=== PATIENT | female | born 1930 | race Caucasian/White ===

== ENCOUNTER → 2017-04-11 | Outpatient (CLI) | payer OTHER ==
[2012-09-17 12:26] VITALS: BP 190/80
--- NOTE | 2017-04-16 10:42 | CT ---
HISTORY: Hypertension, dementia Study: CT brain without contrast Comparison: None Technique: Multiple axial images of the brain were obtained from the skull base to the vertex without administra tion of IV contrast. Dose reduction techniques including automated exposure control (AEC) and adjustm ent of mA and kV we utilized. Findings: No acute intraparenchymal hemorrhage or mass can be identified. No extra-axial fluid collections are seen. No alteration in the attenuation of the brain parenchyma can be identified to suggest acute o r subacute ischemic change. The ventricles, sulci, and cisterns demonstrate an appearance consistent with a milder degree of generalized atrophy. Patchy and confluent areas of decreased attenuation see n throughout the periventricular, subcortical, and subinsular white matter as well as the nuha sugges t changes of chronic small vessel ischemic disease. 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 A remote infarct within the nuha cannot entirely be excluded. If symptoms or clini ida concern persist recommend continued follow-up for further evaluation. IMPRESSION: No acute intracranial process can be identified. Moderate generalized atrophy with findings consistent with changes of chronic small vessel ischemic d isease as noted above. Reported By:
--- NOTE | 2017-04-16 13:39 | CT ---
HISTORY: History of hypertension, dementia, colon cancer and abdominal aortic aneurysm. All Study: CT abdomen and pelvis without contrast Comparison: None available. Technique: Multiple axial images of the abdomen and pelvis were obtained from the lung bases to the pubic symphy sis without the administration of IV contrast. Dose reduction techniques including Automated Exposur e Control (AEC) and adjustment of mA and kV were utilized. Findings: Limited study secondary to lack of IV contrast. Bibasilar scarring versus atelectasis. Otherwise, the visualized portions of the lung bases are unrem arkable. The left kidney is small, likely representing chronic renal disease. Nonspecific left renal calcifications that appear to be vascular. The liver, spleen, pancreas, right kidney, and adrenal gl ands are unremarkable in their CT appearance. The gallbladder is surgically absent. No significant m esenteric lymphadenopathy or stranding can be observed. No free fluid or free air is seen within the abdomen. Limited evaluation of the large and small bowel secondary to the lack of oral contrast and collapse. Diverticulosis without evidence of diverticulitis. Remaining large and small bowel are unr emarkable. Infrarenal fusiform abdominal aortic aneurysm that measures 3.1 x 3.1 cm in greatest dimen umesh. The uterus and ovaries appear surgically absent. The urinary bladder is grossly unremarkable. A nterior compression fractures of T11 and L3 of unknown chronicity. Remaining osseous structures appea r normal for age. IMPRESSION: 1. 3.1 cm infrarenal abdominal aortic aneurysm. 2. Compression fractures of T11 and L3 of unknown chronicity. If patient has point tenderness, consid er MRI of the spine for further characterization. Reported By:
== END | disposition home or self-care (01) | DRG 948 ==
LOC: RAD 13:05
PROVIDERS: ATTEND Internal Medicine
DX: R41.82 Altered mental status, unspecified (principal); I71.4 Abdominal aortic aneurysm, without rupture; M48.55XA Collapsed vertebra, not elsewhere classified, thoracolumbar region, initial encounter for fracture
CPT/HCPCS: 70450; 74176